=== PATIENT | female | born 1965 | race Caucasian/White ===

== ENCOUNTER 2016-05-04 10:19 | Outpatient (CLI) | payer OTHER | END 2016-05-04 10:20 | disposition home or self-care (01) | DX: Z12.31 Encounter for screening mammogram for malignant neoplasm of breast (principal) ==

== ENCOUNTER 2016-06-15 14:28 | Outpatient (CLI) | payer OTHER | END 2016-06-15 14:29 | disposition home or self-care (01) | DX: I49.3 Ventricular premature depolarization (principal); I51.7 Cardiomegaly ==

== ENCOUNTER 2016-07-01 13:44 | Outpatient (CLI) | payer OTHER | END 2016-07-01 13:45 | disposition home or self-care (01) | DX: I49.3 Ventricular premature depolarization (principal) ==

== ENCOUNTER 2017-05-25 14:13 | Outpatient (CLI) | payer OTHER ==
--- NOTE | 2017-05-26 12:35 | Mammography Report ---
DIGITAL SCREENING MAMMOGRAM: 05/25/2017 CLINICAL INDICATION: A 51-year-old nulliparous patient for screening. COMPARISON: 02/2017, 02/2016, 02/2014, 01/2013, 01/2012, 01/2011, 01/2010. TECHNIQUE: Routine CC and MLO projections were obtained of the breasts. FINDINGS: The breasts demonstrate scattered fibroglandular densities bilaterally. A few punctate, typically benign calcifications are present. No suspicious masses, clustered microcalcifications, or regions of architectural distortion are identified. IMPRESSION: BENIGN FINDINGS. RECOMMENDATION: Routine annual screening unless otherwise clinically indicated. BIRADS CATEGORY 2 - BENIGN FINDINGS. STANDARD QUALIFYING STATEMENTS: 1. This examination was reviewed with the aid of Computer-Aided Detection (CAD). 2. A negative or benign imaging report should not delay biopsy if clinically suspicious findings are present. Consider surgical consultation if warranted. More than 5% of cancers are not identified by imaging. 3. Dense breasts may obscure an underlying neoplasm. TD: 05/26/2017 12:35
== END 2017-05-25 14:14 | disposition home or self-care (01) ==
LOC: DI.N 14:13
PROVIDERS: ATTEND Family Medicine
DX: Z12.31 Encounter for screening mammogram for malignant neoplasm of breast (principal)
CPT/HCPCS: 77067

== ENCOUNTER 2018-03-21 14:31 | Outpatient (CLI) | payer OTHER ==
--- NOTE | 2018-03-21 16:27 | Ultrasound Report ---
Reason: MENORRHAGIA, PERIMENOPAUSAL Procedure Date: 03/21/2018 Accession Number: [id number] / [id number] Procedure: US - Pelvic w/Transvaginal CPT Code: FULL RESULT: EXAM: PELVIC ULTRASOUND EXAM DATE: 03/21/2018 03:32 PM. CLINICAL HISTORY: MENORRHAGIA, PERIMENOPAUSAL. LMP 03/09/2018 COMPARISON: CT abdomen and pelvis 03/23/2015. TECHNIQUE: Realtime transabdominal pelvic scan performed to identify the uterus and adnexa and as an overview of other pelvic structures, followed by transvaginal scan to provide greater detail of the uterus and adnexa, with static image documentation. FINDINGS: Uterus: 9.3 x 4.8 x 5.1 cm, volume 128 cc. Anteverted position. Normal overall size and echotexture. Masses: None Endometrium: 7 mm. Normal. Cervix: Unremarkable. Right Ovary: 2.7 x 1.4 x 1.5 cm, volume 3 cc. Normal echotexture and blood flow. Left Ovary: 2.4 x 1.8 x 2.1 cm, volume 4.7 cc. Normal echotexture and blood flow. Free Fluid: Small amount Other: Study is somewhat limited due to patient body habitus. IMPRESSION: Unremarkable pelvic ultrasound. RADIA
== END 2018-03-21 14:32 | disposition home or self-care (01) ==
LOC: DI 14:31
PROVIDERS: ATTEND Obstetrics & Gynecology
DX: N92.4 Excessive bleeding in the premenopausal period (principal)
CPT/HCPCS: 76830; 76856

== ENCOUNTER 2018-05-01 10:39 | Outpatient (CLI) | payer OTHER ==
[2018-05-01 11:14] LABS: HCG UR QUAL NEGATIVE
== END 2018-05-01 10:40 | disposition home or self-care (01) ==
LOC: LAB 10:39
PROVIDERS: ATTEND Obstetrics & Gynecology
DX: Z01.812 Encounter for preprocedural laboratory examination (principal); N85.00 Endometrial hyperplasia, unspecified
CPT/HCPCS: 36415; 81025; 86850; 86900; 86901

== ENCOUNTER 2018-05-03 07:19 | Day surgery (SDC) | payer OTHER ==
[2018-05-03] MEDS ORDERED: LACTATED RINGERS 1,000 ML IV ONE ×2 (07:42→09:54)
--- NOTE | 2018-05-03 08:41 | ANESTHESIA ---
Pre-Anesthesia VS, & Labs - Diagnosis Thickened endometrium - Procedure hysterscopy with d&C Vital Signs: Temp Pulse Resp BP Pulse Ox 36.8 C 85 20 120/79 100 05/03/18 07:49 05/03/18 07:49 05/03/18 07:49 05/03/18 07:49 05/03/18 07:49 Height 5 ft 5 in Weight (kg) 99.2 kg Body Mass Index 39.6 - NPO >8 hours - Is Patient ?: Waiver signed (Negative test on 05/01) - Lab Results Current Lab Results: Laboratory Tests 05/03/18 07:58: POC Whole Bld Glucose 107 H Home Medications and Allergies Home Medications: Ambulatory Orders Atenolol 25 mg PO QPM 04/19/18 Clobetasol Propionate/Emoll [Clobetasol Emollient 0.05% Crm] 1 applic TOP PRN PRN 04/19/18 Diltiazem HCl [Diltiazem ER] 120 mg PO BID 04/19/18 Ferrous Gluconate [Iron] 325 mg PO DAILY 04/19/18 Fluticasone Propionate [Cutivate] 1 applic TP PRN PRN 04/19/18 Magnesium Oxide [Magnesium] 400 mg PO DAILY 04/19/18 Meloxicam 0.5 tab PO ONCE PRN 04/19/18 Levothyroxine [Synthroid] 75 mcg PO DAILY 03/23/15 Atenolol 25 mg PO QPM 04/19/18 Clobetasol Propionate/Emoll [Clobetasol Emollient 0.05% Crm] 1 applic TOP PRN PRN 04/19/18 Diltiazem HCl [Diltiazem ER] 120 mg PO BID 04/19/18 Ferrous Gluconate [Iron] 325 mg PO DAILY 04/19/18 Fluticasone Propionate [Cutivate] 1 applic TP PRN PRN 04/19/18 Magnesium Oxide [Magnesium] 400 mg PO DAILY 04/19/18 Meloxicam 0.5 tab PO ONCE PRN 04/19/18 Allergies/Adverse Reactions: Allergies Allergy/AdvReac Type Severity Reaction Status Date / Time adhesive tape AdvReac Rash Verified 04/19/18 10:08 calamine AdvReac Itching Verified 04/19/18 10:08 codeine AdvReac Hallucinati Verified 03/23/15 19:41 ons Anes History & Medical History - Anesthetic History Anesthesia Complications: reports: No previous complications (Previous an esthetics done under regional. Never had GA) - Medical History Cardiovascular: reports: Arrhythmia (PVCs) Pulmonary: reports: None Urinary: reports: None Neuro: reports: None Musculoskeletal: reports: Osteoarthritis, Chronic back pain Endocrine/Autoimmune: reports: HyPOthyroidism, Other (pre-diabetic) Blood Disorders: reports: None Skin: reports: Eczema Smoking Status: Never smoker - Surgical History Orthopedic: Other (right orif ankle, trigger finger release) Exam General: Alert, Oriented x3, Cooperative, No acute distress Dental: WNL Mouth Openin Fingerbreadth Neck Mobility: Normal Mallampati classification: II Thyromental Distance: 4-6 cm Respiratory: Lungs clear, Normal breath sounds, No respiratory distress, No ac cessory muscle use Cardiovascular: Regular rate, Normal S1, Normal S2, No murmurs Mental/Cognitive Status: Alert/Oriented X3, Normal for patient Plan Anesthesia Type: General Consent for Procedure(s) Verified and Reviewed: Yes Code Status: Attempt Resuscitation ASA classification: 2-Mild systemic disease Is this case an emergency?: No
[2018-05-03] MEDS ORDERED: fentaNYL 100 MCG/2 ML VIAL IVP ONE (09:55)
[2018-05-03] MEDS ORDERED: LIDOCAINE-MPF 2% 5 ML VIAL IM ONE (09:55)
[2018-05-03] MEDS ORDERED: KETOROLAC 30 MG/ML VIAL IVP ONE (09:55)
[2018-05-03] MEDS ORDERED: DEXAMETHASONE 4 MG/ML VIAL IVP ONE (09:55)
[2018-05-03] MEDS ORDERED: PROPOFOL 200 MG/20 ML VIAL IVP ONE (09:55)
[2018-05-03] MEDS ORDERED: ONDANSETRON 4 MG/2 ML VIAL IVP ONE (09:55)
[2018-05-03] MEDS ORDERED: MIDAZOLAM 2 MG/2 ML VIAL IVP ONE (09:55)
[2018-05-03] MEDS ORDERED: LORazepam 2 MG/ML VIAL IVP PRN (10:22)
[2018-05-03] MEDS ORDERED: ONDANSETRON 4 MG/2 ML VIAL IVP PRN (10:22)
[2018-05-03] MEDS ORDERED: oxyCODONE 5 MG TABLET PO PRN (10:22)
[2018-05-03] MEDS ORDERED: HYDROmorphone 0.5 MG/0.5 ML SYRINGE IVP PRN (10:22)
--- NOTE | 2018-05-03 10:28 | OPERATIVE REPORT ---
Operative Report - General Procedure Date: 05/03/18 Planned Procedure: Hysterscopy D&C Pre-Op Diagnosis: Post menopausel bleeding Procedure Performed: Hysterscopy D&C Myosure - Procedure Note Primary Surgeon: Michael Abreu MD Anesthesia Provider: Mohamud Aguilera CRNA Anesthesia Technique: General LMA Pathology: endometrial currettings IV Fluids (mL): 500 Estimated Blood Loss (mL): 5 Urine Output (mL): 50 Complications: none - Other Other Information/Narrative: uterus sounded to 8.5 cm Posterior fibroid [id number]
--- NOTE | 2018-05-03 10:45 | OPERATIVE REPORT ---
DATE OF SERVICE: 05/03/2018 Physician: Michael Abreu MD PREOPERATIVE DIAGNOSIS: Postmenopausal bleeding, inability to sample endometrium in the office. POSTOPERATIVE DIAGNOSIS: Posterior uterine fibroid. PROCEDURE: Hysteroscopy with D and C utilizing MyoSure. SURGEON: Michael Abreu MD. ANESTHESIA PROVIDER: Norris Aguilera CRNA. ANESTHESIA: General via LMA. ESTIMATED BLOOD LOSS: 5 mL. IV FLUIDS: 500 mL. URINE OUTPUT: 50 mL. FINDINGS: The cervix was riding very high in the pelvic cavity, was difficult to reach. Following grasping, the uterus was noted to be tightly closed. Uterus sounded to 8.5 cm, and there was evidence of a posterior myometrial fibroid. This was resected in toto. DESCRIPTION OF PROCEDURE: Following adequate general anesthesia, the patient was placed in dorsal lithotomy position in Jaydon stirrups. Pelvic examination under anesthesia was unrewarding secondary to the patient's abdominal wall thickness. The uterus was suspected to be anterior. At this point, she was prepped and draped in the usual fashion. A timeout was performed, at which time the patient's identity as well as procedure were confirmed. A speculum was placed in the vagina. The cervix was visualized, grasped with a single-tooth tenaculum. Posteriorly, that was all that could be visualized. At this point, the cervical os was visualized and then dilated up to 6 mm utilizing dilators. Uterus was then sounded to 8.5 cm. The hysteroscope was then introduced, and there was evidence of a fibroid in the posterior uterine wall. It was partially buried. The cornus appeared to be normal, and there was no evidence of any other abnormal vascularity. At this point, the MyoSure heavy was introduced, and the fibroid was resected as much as possible. The endometrial cavity was reinspected. No bleeding. There was no evidence of any further lesions. At this point, the procedure was terminated. Cervix was released from the single-tooth tenaculum. Sponge and needle counts were correct. The patient was taken to recovery in stable condition. TD: 05/03/2018 10:39 MTDD
[2018-05-03 11:01] VITALS: BP 125/79
[2018-05-03] MEDS ORDERED: oxyCODONE 5 MG TABLET ONE (11:10)
== END 2018-05-03 07:20 | disposition home or self-care (01) ==
LOC: SDS 07:19
PROVIDERS: ATTEND Obstetrics & Gynecology
PROC: 0UDB8ZZ Extraction of Endometrium, Via Natural or Artificial Opening Endoscopic (ICD-10-PCS; principal; 2018-05-03 09:30)
DX: R93.89 Abnormal findings on diagnostic imaging of other specified body structures (principal); D25.9 Leiomyoma of uterus, unspecified
CPT/HCPCS: 58558; A9270; J7120

== ENCOUNTER 2018-06-01 09:57 | Outpatient (CLI) | payer OTHER ==
--- NOTE | 2018-06-01 11:33 | Mammography Report ---
Reason: ROUTINE MAMMOGRAM Procedure Date: 06/01/2018 Accession Number: [id number] / [id number] Procedure: MGN - Screening Mammo Dig Bilat CPT Code: FULL RESULT: EXAM: Screening Mammo Dig Bilat DATE: 06/01/2018 10:21 AM CLINICAL HISTORY: Screening encounter. History of nulliparity and early menses. TECHNIQUE: Bilateral CC and MLO views were obtained. COMPARISON: 05/25/2017 through 03/06/2014. FINDINGS: The breasts demonstrate scattered fibroglandular densities bilaterally. There are coarse typically benign calcifications. No suspicious masses, clustered microcalcifications, or regions of architectural distortion are identified. IMPRESSION: Benign findings RECOMMENDATION: Routine annual screening unless otherwise clinically indicated. BIRADS CATEGORY 2: Benign findings STANDARD QUALIFYING STATEMENTS: 1. This examination was reviewed with the aid of Computer-Aided Detection (CAD). 2. A negative or benign imaging report should not delay biopsy if clinically suspicious findings are present. Consider surgical consultation if warrented. More than 5% of cancers are not identified by imaging. 3. Dense breasts may obscure an underlying neoplasm.
== END 2018-06-01 09:58 | disposition home or self-care (01) ==
LOC: DI.N 09:57
PROVIDERS: ATTEND Family Medicine
DX: Z12.31 Encounter for screening mammogram for malignant neoplasm of breast (principal)
CPT/HCPCS: 77067

== ENCOUNTER 2018-07-25 12:14 | Outpatient (CLI) | payer OTHER ==
[2018-07-25 12:45] LABS: BASOPHILS # (AUTO) 0.1 10^3/uL (0.0-0.1); BASOPHILS % (AUTO) 1.5 %; EOSINOPHILS # (AUTO) 0.3 10^3/uL (0.0-0.7); HGB - HEMOGLOBIN 12.5 g/dL (12.0-16.0); LYMPHOCYTES # (AUTO) 1.1 10^3/uL (1.5-3.5); LYMPHOCYTES % (AUTO) 15.5 %; MEAN CORPUSCULAR HEMOGLOBIN 24.9 pg (27.0-31.0); MEAN CORPUSCULAR HGB CONC 32.2 g/dL (32.0-36.0); MEAN CORPUSCULAR VOLUME 77.4 fL (81.0-99.0); MEAN PLATELET VOLUME 8.3 fL (7.9-10.8); MONOCYTES # (AUTO) 0.5 10^3/uL (0.0-1.0); MONOCYTES % (AUTO) 6.9 %; NEUTROPHILS # (AUTO) 4.8 10^3/uL (1.5-6.6); NEUTROPHILS % (AUTO) 71.1 %; PLT - PLATELET COUNT 415 10^3/uL (130-450); RED BLOOD COUNT 5.02 10^6/uL (4.20-5.40); WHITE BLOOD COUNT 6.8 x10^3/uL (4.8-10.8)
[2018-07-25 12:59] LABS: ALBUMIN 3.9 g/dL (3.2-5.5); ALBUMIN/GLOBULIN RATIO 1.2 (1.0-2.2); BILIRUBIN,TOTAL 0.5 mg/dL (0.2-1.0); CALCIUM 9.5 mg/dL (8.5-10.3); CREATININE 0.9 mg/dL (0.4-1.0); TOTAL PROTEIN 7.2 g/dL (6.7-8.2)
== END 2018-07-25 12:15 | disposition home or self-care (01) ==
LOC: LAB 12:14
PROVIDERS: ATTEND Obstetrics & Gynecology
DX: Z01.818 Encounter for other preprocedural examination (principal); Z01.812 Encounter for preprocedural laboratory examination; Z80.41 Family history of malignant neoplasm of ovary
CPT/HCPCS: 36415; 80053; 85025; 86850; 86900; 86901; 93005

== ENCOUNTER 2018-07-26 10:19 | Day surgery (SDC) | payer OTHER ==
[2018-07-26 11:24] VITALS: BP 132/85
[2018-07-26] MEDS ORDERED: LACTATED RINGERS 1,000 ML IV ONE (11:39)
[2018-07-26 11:48] LABS: HCG UR QUAL NEGATIVE
[2018-07-26] MEDS ORDERED: CEFAZOLIN SODIUM IN 0.9 % NACL 2 GM/100 ML BAG IV ONE (11:48)
--- NOTE | 2018-07-26 12:13 | ANESTHESIA ---
Pre-Anesthesia VS, & Labs - Diagnosis family history of ovarian cancer - Procedure Laparoscopic assisted vaginal hysterectomy Vital Signs: Temp Pulse Resp BP Pulse Ox 36.8 C 76 18 132/85 H 100 07/26/18 11:23 07/26/18 11:23 07/26/18 11:23 07/26/18 11:23 07/26/18 11:23 Height 5 ft 5 in Weight (kg) 98.5 kg Body Mass Index 39.6 Home Medications and Allergies Home Medications: Ambulatory Orders Ascorbic Acid [Vitamin C] 500 mg PO DAILY 07/25/18 Cetirizine HCl [Allergy Relief] 10 mg PO BID 07/25/18 Cholecalciferol (Vitamin D3) [Vitamin D] 2,000 unit PO DAILY 07/25/18 Multivitamin [Multivitamins] 1 each PO DAILY 07/25/18 Levothyroxine [Synthroid] 75 mcg PO DAILY 03/23/15 Atenolol 25 mg PO QPM 04/19/18 Clobetasol Propionate/Emoll [Clobetasol Emollient 0.05% Crm] 1 applic TOP PRN PRN 04/19/18 Ferrous Gluconate [Iron] 325 mg PO DAILY 04/19/18 Magnesium Oxide [Magnesium] 400 mg PO DAILY 04/19/18 Meloxicam 0.5 tab PO ONCE PRN 04/19/18 dilTIAZem HCl [Diltiazem ER] 120 mg PO BID 04/19/18 Ascorbic Acid [Vitamin C] 500 mg PO DAILY 07/25/18 Cetirizine HCl [Allergy Relief] 10 mg PO BID 07/25/18 Cholecalciferol (Vitamin D3) [Vitamin D] 2,000 unit PO DAILY 07/25/18 Multivitamin [Multivitamins] 1 each PO DAILY 07/25/18 Allergies/Adverse Reactions: Allergies Allergy/AdvReac Type Severity Reaction Status Date / Time adhesive tape AdvReac Rash Verified 04/19/18 10:08 calamine AdvReac Itching Verified 04/19/18 10:08 codeine AdvReac Hallucinati Verified 03/23/15 19:41 ons Anes History & Medical History - Medical History Cardiovascular: reports: Arrhythmia Pulmonary: reports: None Gastrointestinal: reports: Other Urinary: reports: None Neuro: reports: None Musculoskeletal: reports: Osteoarthritis, Chronic back pain, Other Endocrine/Autoimmune: reports: HyPOthyroidism, Other Blood Disorders: reports: None Skin: reports: Eczema Smoking Status: Never smoker - Surgical History Gynecologic: Dilation and currettage, Other Orthopedic: Other
[2018-07-26] MEDS ORDERED: BUPIVACAINE 0.25%-EPI 1:200000 PF 30 ML VIAL ONE (12:26)
--- NOTE | 2018-07-26 12:29 | ANESTHESIA ---
Pre-Anesthesia VS, & Labs - Diagnosis family history of ovarian cancer - Procedure LAVH with BSO Vital Signs: Temp Pulse Resp BP Pulse Ox 36.8 C 76 18 132/85 H 100 07/26/18 11:23 07/26/18 11:23 07/26/18 11:23 07/26/18 11:23 07/26/18 11:23 Height 5 ft 5 in Weight (kg) 98.5 kg Body Mass Index 39.6 - NPO >8 hours - Is Patient ?: No - Lab Results Lab results reviewed: Yes Home Medications and Allergies Home Medications: Ambulatory Orders Ascorbic Acid [Vitamin C] 500 mg PO DAILY 07/25/18 Cetirizine HCl [Allergy Relief] 10 mg PO BID 07/25/18 Cholecalciferol (Vitamin D3) [Vitamin D] 2,000 unit PO DAILY 07/25/18 Multivitamin [Multivitamins] 1 each PO DAILY 07/25/18 Levothyroxine [Synthroid] 75 mcg PO DAILY 03/23/15 Atenolol 25 mg PO QPM 04/19/18 Clobetasol Propionate/Emoll [Clobetasol Emollient 0.05% Crm] 1 applic TOP PRN PRN 04/19/18 Ferrous Gluconate [Iron] 325 mg PO DAILY 04/19/18 Magnesium Oxide [Magnesium] 400 mg PO DAILY 04/19/18 Meloxicam 0.5 tab PO ONCE PRN 04/19/18 dilTIAZem HCl [Diltiazem ER] 120 mg PO BID 04/19/18 Ascorbic Acid [Vitamin C] 500 mg PO DAILY 07/25/18 Cetirizine HCl [Allergy Relief] 10 mg PO BID 07/25/18 Cholecalciferol (Vitamin D3) [Vitamin D] 2,000 unit PO DAILY 07/25/18 Multivitamin [Multivitamins] 1 each PO DAILY 07/25/18 Allergies/Adverse Reactions: Allergies Allergy/AdvReac Type Severity Reaction Status Date / Time adhesive tape AdvReac Rash Verified 04/19/18 10:08 calamine AdvReac Itching Verified 04/19/18 10:08 codeine AdvReac Hallucinati Verified 03/23/15 19:41 ons Anes History & Medical History - Anesthetic History Anesthesia Complications: reports: No previous complications - Medical History Cardiovascular: reports: Arrhythmia (irregular rhythm, denies afib.) Pulmonary: reports: None Gastrointestinal: reports: None Urinary: reports: None Neuro: reports: None Musculoskeletal: reports: Osteoarthritis, Chronic back pain Endocrine/Autoimmune: reports: HyPOthyroidism Blood Disorders: reports: None Skin: reports: Eczema Smoking Status: Never smoker - Surgical History Gynecologic: Dilation and currettage Orthopedic: Other (trigger finger and ankle orif) Exam General: Alert, Oriented x3, Cooperative, No acute distress Dental: WNL Mouth Openin Fingerbreadth Neck Mobility: Normal Mallampati classification: II Thyromental Distance: greater than 6 cm Respiratory: Lungs clear, Normal breath sounds, No respiratory distress, No accessory muscle use Cardiovascular: Regular rate, Normal S1, Normal S2, No murmurs Mental/Cognitive Status: Alert/Oriented X3, Normal for patient Plan Anesthesia Type: General Consent for Procedure(s) Verified and Reviewed: Yes Code Status: Attempt Resuscitation ASA classification: 2-Mild systemic disease Is this case an emergency?: No
== END 2018-07-26 10:20 | disposition home or self-care (01) ==
LOC: SDS 10:19
PROVIDERS: ATTEND Obstetrics & Gynecology
DX: Z40.02 Encounter for prophylactic removal of ovary(s) (principal); Z80.41 Family history of malignant neoplasm of ovary; Z53.09 Procedure and treatment not carried out because of other contraindication; R94.31 Abnormal electrocardiogram [ECG] [EKG]
CPT/HCPCS: 81025

== ENCOUNTER 2018-08-17 10:49 | Outpatient (CLI) | payer OTHER ==
--- NOTE | 2018-08-17 17:20 | CARDIAC PROCEDURE NOTE ---
DATE OF SERVICE: 08/17/2018 Physician: [facility] 1. Abnormal EKG. 2. History of symptomatic PVCs. CARDIAC RISK FACTORS: Hypertension, family history of heart disease, obesity, (possible) postmenopausal status. PROCEDURE: After signing informed consent, the patient underwent a Matthieu- protocol stress test with nuclear myocardial perfusion imaging. RESTING HEART RATE: 76. PEAK HEART RATE: 174 (102% predicted maximum heart rate for age). RESTING BLOOD PRESSURE: 138/80. PEAK BLOOD PRESSURE: 184/82. The patient exercised for 4 minutes and 53 seconds on a Matthieu-protocol treadmill stress test. She achieved a peak heart rate of 174 (102% PMHR) and 6.9 METS. The patient described no chest pain, had mild shortness of breath, described her perceived exertion as 14/20 on a Dulce scale. RESTING EKG: Normal sinus rhythm, flat T-wave in lead aVF, and V2 through V5. EKG AT PEAK: Scooping ST segment depression in leads II, III, and aVF, unchanged flat T waves in same leads. SUMMARY: 1. Abnormal resting EKG. 2. Fair exercise tolerance. 3. No significant ischemic changes by EKG criteria during this treadmill stress test at an adequate level of stress achieved. 4. Nuclear images are reported separately. cc: Darvin Angulo MD TD: 08/17/2018 17:12 MTDD
--- NOTE | 2018-08-23 09:59 | Nuclear Medicine Report ---
Reason: ABN ECG, SYMPTOMATIC PVC'S Procedure Date: 08/17/2018 Accession Number: [id number] / [id number] Procedure: NM - Myocardial Perfusion STR/RST CPT Code: FULL RESULT: EXAM: SINGLE-ISOTOPE EXERCISE STRESS TEST. SINGLE-ISOTOPE AND ONE-DAY REST/STRESS MYOCARDIAL PERFUSION SCANS WITH TOMOGRAPHIC IMAGING, QUANTITATIVE ANALYSIS, WALL MOTION ANALYSIS AND CALCULATION OF EJECTION FRACTION. EXAM DATE: 08/17/2018 04:04 PM. CLINICAL HISTORY: ABN ECG, SYMPTOMATIC PVCS. COMPARISON: 08/17/2018 2:30 PM. TECHNIQUE: A rest myocardial perfusion scan was done with tomography after the intravenous administration of 9.4 mCi Tc-99m sestamibi. After an appropriate delay, a treadmill exercise stress was performed according to department protocol. The patient exercised for 4 minutes and 53 seconds. The maximum heart rate was 174 bpm, which was 102% of the maximum predicted heart rate of 170 bpm. At approximately peak heart rate, 42.4 mCi of Tc-99m sestamibi was injected for stress myocardial perfusion scan. Motion correction was applied when appropriate. Gated tomographic images were obtained for wall motion analysis and computation of left ventricular ejection fraction. FINDINGS: On visual analysis, there is a small fixed defect in the apex. On the rest images, there is bowel activity immediately adjacent to the inferior wall which results in artifact. No convincing significant reversible perfusion defects. Computer analysis suggest the presence of a partially fixed and partially reversible perfusion defect in the septum. Summed stress score 9 Summed rest score 5 Summed difference score 4 Wall motion analysis demonstrates no focal wall motion abnormality. The left ventricular end-diastolic volume is 73 cc. The left ventricular end-systolic volume is 16 cc. The left ventricular ejection fraction is calculated to be 75%. IMPRESSION: 1. On visual analysis, small fixed defect in the apex. No convincing significant reversible perfusion defects. Computer analysis suggests a partially fixed and partially reversible defect in the septum. 2. Normal left ventricular ejection fraction of 75%. 3. Normal segmental and global wall motion. 4. Normal left ventricular cavity size, no change with stress. 5. Based on computer analysis, moderately abnormal study with mild ischemia. Please correlate findings with stress ECG tracings and procedure notes. [facility] ADDENDUM: 08/23/18 10:47 This exam is dated 08/17/2018 but was made available for interpretation 08/23/2018
== END 2018-08-17 10:50 | disposition home or self-care (01) ==
LOC: DI 10:49
PROVIDERS: ATTEND Internal Medicine Cardiovascular Disease
DX: I25.9 Chronic ischemic heart disease, unspecified (principal); R94.31 Abnormal electrocardiogram [ECG] [EKG]; I49.3 Ventricular premature depolarization; I10 Essential (primary) hypertension; E66.9 Obesity, unspecified; Z82.49 Family history of ischemic heart disease and other diseases of the circulatory system
CPT/HCPCS: 78452; 93016; 93017; 93018; A9500

== ENCOUNTER 2018-09-01 10:40 | Outpatient (CLI) | payer OTHER ==
[2018-09-01 13:00] LABS: CALCIUM 9.1 mg/dL (8.5-10.3)
== END 2018-09-01 23:59 | disposition home or self-care (01) ==
LOC: LAB.N 10:40
PROVIDERS: ATTEND Internal Medicine Cardiovascular Disease
DX: I49.3 Ventricular premature depolarization (principal); R94.39 Abnormal result of other cardiovascular function study
CPT/HCPCS: 36415; 80048

== ENCOUNTER 2018-10-03 10:29 | Outpatient (CLI) | payer OTHER ==
[2018-10-03 10:49] LABS: BASOPHILS # (AUTO) 0.1 10^3/uL (0.0-0.1); BASOPHILS % (AUTO) 1.3 %; EOSINOPHILS # (AUTO) 0.4 10^3/uL (0.0-0.7); EOSINOPHILS % (AUTO) 5.2 %; HGB - HEMOGLOBIN 12.4 g/dL (12.0-16.0); LYMPHOCYTES # (AUTO) 1.3 10^3/uL (1.5-3.5); LYMPHOCYTES % (AUTO) 16.7 %; MEAN CORPUSCULAR HEMOGLOBIN 25.3 pg (27.0-31.0); MEAN CORPUSCULAR HGB CONC 31.2 g/dL (32.0-36.0); MEAN CORPUSCULAR VOLUME 81.2 fL (81.0-99.0); MEAN PLATELET VOLUME 10.2 fL (7.9-10.8); MONOCYTES # (AUTO) 0.6 10^3/uL (0.0-1.0); MONOCYTES % (AUTO) 7.5 %; NEUTROPHILS # (AUTO) 5.4 10^3/uL (1.5-6.6); NEUTROPHILS % (AUTO) 68.8 %; PLT - PLATELET COUNT 437 10^3/uL (130-450); RED CELL DISTRIBUTION WIDTH 13.7 % (12.0-15.0); WHITE BLOOD COUNT 7.9 x10^3/uL (4.8-10.8)
[2018-10-03 11:01] LABS: HCG UR QUAL NEGATIVE
[2018-10-03 11:07] LABS: ALBUMIN 3.9 g/dL (3.2-5.5); ALBUMIN/GLOBULIN RATIO 1.3 (1.0-2.2); BILIRUBIN,TOTAL 0.6 mg/dL (0.2-1.0); CALCIUM 9.4 mg/dL (8.5-10.3); CREATININE 0.9 mg/dL (0.4-1.0)
== END 2018-10-03 10:30 | disposition home or self-care (01) ==
LOC: LAB 10:29
PROVIDERS: ATTEND Obstetrics & Gynecology
DX: Z01.812 Encounter for preprocedural laboratory examination (principal); Z80.9 Family history of malignant neoplasm, unspecified
CPT/HCPCS: 36415; 80053; 81025; 85025; 86850; 86900; 86901

== ENCOUNTER 2018-10-04 | Day surgery (SDC) | payer OTHER | END 2018-10-05 11:15 | disposition home or self-care (01) | PROC: 0UT9FZZ Resection of Uterus, Via Natural or Artificial Opening With Percutaneous Endoscopic Assistance (ICD-10-PCS; principal; 2018-10-04) | PROC: 0UT2FZZ Resection of Bilateral Ovaries, Via Natural or Artificial Opening With Percutaneous Endoscopic Assistance (ICD-10-PCS; 2018-10-04) | PROC: 0UT7FZZ Resection of Bilateral Fallopian Tubes, Via Natural or Artificial Opening With Percutaneous Endoscopic Assistance (ICD-10-PCS; 2018-10-04) | DX: Z40.02 Encounter for prophylactic removal of ovary(s) (principal); Z80.41 Family history of malignant neoplasm of ovary; E03.9 Hypothyroidism, unspecified; D25.1 Intramural leiomyoma of uterus; N85.8 Other specified noninflammatory disorders of uterus; I49.9 Cardiac arrhythmia, unspecified; M19.90 Unspecified osteoarthritis, unspecified site; K21.9 Gastro-esophageal reflux disease without esophagitis; Z87.440 Personal history of urinary (tract) infections | CPT/HCPCS: 58552; A9270; J0690; J1170; J7120 ==

== ENCOUNTER 2019-01-31 10:13 | Outpatient (CLI) | payer OTHER ==
--- NOTE | 2019-02-01 00:02 | XRAY Report ---
Reason: PAIN IN RIGHT KNEE Procedure Date: 01/31/2019 Accession Number: [id number] / [id number] Procedure: XRN - Knee 3 View RT CPT Code: Final Report FULL RESULT: EXAM: RIGHT KNEE RADIOGRAPHY EXAM DATE: 01/31/2019 11:03 AM. CLINICAL HISTORY: PAIN IN RIGHT KNEE. COMPARISON: None. TECHNIQUE: 3 views. FINDINGS: Bones: Normal. No fractures or bone lesions. Joints: Normal. No effusion. No subluxations. Soft Tissues: Normal. No soft tissue swelling. IMPRESSION: Normal knee radiography. RADIA
== END 2019-01-31 10:14 | disposition home or self-care (01) ==
LOC: DI.N 10:13
PROVIDERS: ATTEND Family Medicine
DX: M25.561 Pain in right knee (principal)

== ENCOUNTER 2020-06-16 14:31 | Outpatient (CLI) | payer OTHER ==
--- NOTE | 2020-06-16 16:22 | XRAY Report ---
PROCEDURE: Knee 3 View LT INDICATIONS: LT KNEE PAIN TECHNIQUE: 3 views of the left knee(s) were acquired. COMPARISON: None. FINDINGS: Bones: No fractures or dislocations. No suspicious bony lesions. Moderate tricomponent mild articu lar osteophyte formation. Soft tissues: Small knee joint effusion. No suspicious soft tissue calcifications. IMPRESSION: 1. Osteoarthritis. 2. Knee joint effusion. 3. No acute fracture. No osseous lesion. If symptoms and/or clinical suspicion for pathology continue , further assessment with repeat plain films, or advanced imaging (e.g., CT, MRI, or bone scan) is re commended for further assessment. Reviewed by: Ale Payne MD on 06/16/2020 4:21 PM PDT Approved by: Ale Payne MD on 06/16/2020 4:21 PM PDT Station ID: [id number]
== END 2020-06-16 14:32 | disposition home or self-care (01) ==
LOC: DI.N 14:31
PROVIDERS: ATTEND Family Medicine
DX: M17.12 Unilateral primary osteoarthritis, left knee (principal); M25.462 Effusion, left knee

== ENCOUNTER 2021-02-26 12:58 | Outpatient (CLI) | payer OTHER ==
--- NOTE | 2021-03-02 11:14 | Mammography Report ---
BILATERAL DIGITAL SCREENING MAMMOGRAM 3D/2D: 02/26/2021 CLINICAL: Routine screening. Comparison is made to exams dated: 10/11/2019 mammogram, 06/01/2018 mammogram, and 05/25/2017 mammogram - [facility]. There are scattered fibroglandular elements in both breasts. No significant masses, calcifications, or other findings are seen in either breast. There has been no significant interval change. IMPRESSION: NEGATIVE There is no mammographic evidence of malignancy. A 1 year screening mammogram is recommended. This exam was interpreted at Station ID: [id number]. NOTE: For mammograms, a report in lay terms will be sent to the patient. Approximately 15% of breast malignancies will not be visualized mammographically. In the management of a palpable breast mass, a negative mammogram must not discourage biopsy of a clinically suspicious lesion. Electronically Signed By: Huan Tamayo M.D. ar/[email or web address]:02/26/2021 14:07:47 ACR BI-RADS Category 1: Negative 3341F PARENCHYMAL PATTERN: (A) - The breast(s) demonstrate(s) scattered fibroglandular densities. BI-RADS CATEGORY: (1) - 1 RECOMMENDATION: (ANNUAL) - Recommend routine annual screening mammography. [id number] 1 year screening LATERALITY: (B)
== END 2021-02-26 12:59 | disposition home or self-care (01) ==
LOC: DI.N 12:58
PROVIDERS: ATTEND Family Medicine
DX: Z12.31 Encounter for screening mammogram for malignant neoplasm of breast (principal)

== ENCOUNTER 2023-04-28 13:19 | Outpatient (CLI) | payer OTHER ==
--- NOTE | 2023-04-29 08:38 | Mammography Report ---
BILATERAL DIGITAL SCREENING MAMMOGRAM 3D/2D: 04/28/2023 CLINICAL: Routine screening. Comparison is made to exams dated: 03/25/2022 mammogram, 02/26/2021 mammogram, 10/11/2019 mammogram, mammogram, 05/25/2017 mammogram, and 05/04/2016 mammogram - [facility]. Both breasts are heterogeneously dense, which may obscure small masses (category c / 51-75% glandular tissue). No significant masses, calcifications, or other findings are seen in either breast. There has been no significant interval change. IMPRESSION: NEGATIVE There is no mammographic evidence of malignancy. A 1 year screening mammogram is recommended. Based on the Tyrer Cuzick model (a risk assessment model) the patient's lifetime risk is 14.0% and he r 10 year risk is 4.3%. According to the ACR, ACS, and NCCN guidelines, an annual breast MRI exam ryan ng with mammogram is recommended if the patient's lifetime risk is 20% or greater. This exam was interpreted at Station ID: [id number]. NOTE: For mammograms, a report in lay terms will be sent to the patient. Approximately 15% of breast malignancies will not be visualized mammographically. In the management of a palpable breast mass, a negative mammogram must not discourage biopsy of a clinically suspicious lesion. Electronically Signed By: Supa flores/nico:04/28/2023 14:39:17 letter sent: No_Letter ACR BI-RADS Category 1: Negative 3341F PARENCHYMAL PATTERN: (D) - The breast(s) demonstrate(s) heterogeneously dense fibroglandular rosie jeffery. BI-RADS CATEGORY: (1) - 1 Mammogram [id number] 1 year screening LATERALITY: (B)
== END 2023-04-28 13:20 | disposition home or self-care (01) ==
LOC: DI.N 13:19
DX: Z12.31 Encounter for screening mammogram for malignant neoplasm of breast (principal); R92.333 Mammographic heterogeneous density, bilateral breasts